=== PATIENT | female | born 1980 | race Caucasian/White ===

== ENCOUNTER 2017-01-24 20:10 | Emergency (ER) | payer SELFPAY ==
[2017-01-24 21:04] VITALS: BP 147/90
[2017-01-24] MEDS ORDERED: OXYCODONE-ACETAMINOPHEN 5-325 MG TABLET PO ONE (21:51)
--- NOTE | 2017-01-24 21:53 | ER Document Report ---
HPI - HPI Patient complains to provider of: Left foot pain Pain Level: 5 Context: Patient is a 36-year-old female who comes emergency department for chief complaint of bruising and swelling over 2 of the toes on her left foot, she states she woke up with this, she cannot remember any injury last night, she denies any other areas of pain or noted injury. Patient also states she has an area that is circular and on her right proximal lower extremity that has been there for 2-1/2 years that she wants checked. Patient denies any daily medications, denies any medical history other than the area on her leg. LMP within the past 3 weeks. - REPRODUCTIVE Reproductive: DENIES: : - DERM Skin Color: Normal Past Medical History - General Information source: Patient - Social History Smoking Status: Never Smoker Drug Abuse: None Lives with: Family Family History: Reviewed & Not Pertinent Patient has suicidal ideation: No Patient has homicidal ideation: No - Medical History Medical History: Negative Renal/ Medical History: Denies: Hx Peritoneal Dialysis Past Surgical History: Reports: Hx Section, Hx Tubal Ligation - Immunizations Immunizations up to date: Yes Hx Diphtheria, Pertussis, Tetanus Vaccination: Yes Vertical Provider Document - CONSTITUTIONAL General Appearance: WD/WN, No Apparent Distress - INFECTION CONTROL TRAVEL OUTSIDE OF THE [place] IN LAST 30 DAYS: No - HEENT HEENT: Atraumatic, Normal ENT Exam, Normocephalic - NECK Neck: Normal Inspection - RESPIRATORY Respiratory: Breath Sounds Normal, No Respiratory Distress O2 Sat by Pulse Oximetry: 100 - CARDIOVASCULAR Cardiovascular: Regular Rate, Regular Rhythm - GI/ABDOMEN Gastrointestinal: Abdomen Soft, Abdomen Non-Tender - MUSCULOSKELETAL/EXTREMETIES Musculoskeletal/Extremeties: Tender - There is mild ecchymosis over the dorsal aspect of the left third and fourth toes, there is a small abrasion over the third toe, capillary refill and sensation intact, range of motion intact, examination of the lower extremity is otherwise unremarkable. On the right lower extremity over the proximal anterior tibial area there is a spongy circular area in question, no significant erythema or heat to the area, no tenderness noted, no other abnormality noted - NEURO Level of Consciousness: Awake, Alert, Appropriate Course - Re-evaluation Re-evalutation: Examination is consistent with trauma to the left third and fourth toes, patient was provided with crutches, surgical shoe, x-rays do not show any fracture, dislocation, or other abnormality. Evaluate anti-inflammatory. Remaining area in question appears to be either a cyst or lipoma, no acute abnormalities noted. Discussed treatment, follow-up, return precautions, patient states understanding and agreement. - Vital Signs Vital signs: Temp Pulse Resp BP Pulse Ox 98 F 73 16 147/90 H 100 01/24/17 21:00 01/24/17 21:00 01/24/17 21:00 01/24/17 21:00 01/24/17 21:00 Discharge - Discharge Clinical Impression: Traumatic ecchymosis of toe of left foot Qualifiers: Encounter type: initial encounter Qualified Code(s): S90.122A - Contusion of left lesser toe(s) without damage to nail, initial encounter Condition: Stable Disposition: HOME, SELF-CARE Additional Instructions: There is soft tissue injury of the toe but no evidence of fracture or dislocation on imaging. Use the crutches for the first couple of days if needed , take an anti-inflammatory as prescribed, apply ice to the area and elevate your foot as often as possible. The area on the right leg appears to either be a lipoma or cyst, follow-up with 1 of the referrals given for potential removal if desired. Return to emergency department for any concerning worsening symptoms including swelling or redness to the area, severe pain, or any other concerning symptoms. Prescriptions: Naproxen 500 mg PO BID #20 tablet Referrals: TORRI URBANO DO [ACTIVE STAFF] - Follow up as needed ANTIONETTE CASTILLO MD [ACTIVE STAFF] - Follow up as needed [facility] [Provider Group] - Follow up as needed
== END 2017-01-24 23:14 | disposition home or self-care (01) ==
LOC: ER 20:10
DX: S90.122A Contusion of left lesser toe(s) without damage to nail, initial encounter (principal); M79.672 Pain in left foot; X58.XXXA Exposure to other specified factors, initial encounter
CPT/HCPCS: 99283

== ENCOUNTER 2018-07-04 21:57 | Emergency (ER) | payer SELFPAY ==
[2018-07-04] MEDS ORDERED: KETOROLAC TROMETHAMINE 60 MG/2 ML SDV IM ONE (23:13)
[2018-07-04] MEDS ORDERED: ONDANSETRON 4 MG TAB.RAPDIS PO ONE (23:13)
[2018-07-04] MEDS ORDERED: NORMAL SALINE 1000 ML 1,000 ML IV ONE (23:14)
--- NOTE | 2018-07-04 23:20 | ER Document Report ---
ED Medical Screen (RME) - General Chief Complaint: Chest Pain Stated Complaint: CHEST PAIN/ABDOMINAL PAIN Time Seen by Provider: 07/04/18 23:13 Notes: 38-year-old female chief complaint of sharp upper abdominal pain and vomiting x10 since last night. She states that she tried to eat but this made it worse. No lower abdominal pain, no fever, normal bowel movements. No surgical history. TRAVEL OUTSIDE OF THE [place] IN LAST 30 DAYS: No - Related Data Allergies/Adverse Reactions: No Known Allergies Allergy (Verified 01/24/17 21:05) Past Medical History Renal/ Medical History: Denies: Hx Peritoneal Dialysis Past Surgical History: Reports: Hx Section, Hx Tubal Ligation - Immunizations Immunizations up to date: Yes Hx Diphtheria, Pertussis, Tetanus Vaccination: Yes Physical Exam - Vital signs Vitals: Temp Pulse Resp BP Pulse Ox 98.4 F 74 18 156/100 H 100 07/04/18 22:18 07/04/18 22:18 07/04/18 22:18 07/04/18 22:18 07/04/18 22:18 - Abdominal Tenderness: Tender, Goodman's sign Course - Vital Signs Vital signs: Temp Pulse Resp BP Pulse Ox 98.4 F 74 18 156/100 H 100 07/04/18 22:18 07/04/18 22:18 07/04/18 22:18 07/04/18 22:18 07/04/18 22:18
[2018-07-04 23:45] LABS: ABSOLUTE EOSINOPHILS # (AUTO) 0.1 10^3/uL (0.0-0.6); ABSOLUTE LYMPHOCYTES (AUTO) 1.4 10^3/uL (0.5-4.7); ABSOLUTE MONOCYTES (AUTO) 0.7 10^3/uL (0.1-1.4); ABSOLUTE NEUT (AUTO) 9.3 10^3/uL (1.7-8.2); BASOPHILS % (AUTO) 0.2 % (0-2); EOSINOPHILS % (AUTO) 0.5 % (0-6); HEMATOCRIT 44.5 % (36.0-47.0); HEMOGLOBIN 14.7 g/dL (12.0-15.5); LYMPHOCYTES % (AUTO) 11.8 % (13-45); MEAN CORPUSCULAR HEMOGLOBIN 30.3 pg (27.0-33.4); MEAN CORPUSCULAR HGB CONC 33.1 g/dL (32.0-36.0); MEAN CORPUSCULAR VOLUME 92 fl (80-97); MONOCYTES % (AUTO) 5.7 % (3-13); PLATELET COUNT 227 10^3/uL (150-450); RED BLOOD COUNT 4.86 10^6/uL (3.72-5.28); RED CELL DISTRIBUTION WIDTH 14.6 % (11.5-14.0); SEGMENTED NEUTROPHILS % (AUTO) 81.8 % (42-78); TOTAL CELLS COUNTED % (AUTO) 100 %; WHITE BLOOD COUNT 11.4 10^3/uL (4.0-10.5)
[2018-07-04] MEDS ORDERED: ONDANSETRON HCL INJ/PF 4 MG/2 ML SDV IV ONE (23:50)
[2018-07-04] MEDS ORDERED: KETOROLAC TROMETHAMINE INJ/PF 30 MG/1 ML SDV IV ONE (23:50)
--- NOTE | 2018-07-04 23:57 | ER Document Report ---
ED General - General Chief Complaint: Chest Pain Stated Complaint: CHEST PAIN/ABDOMINAL PAIN Time Seen by Provider: 07/04/18 23:13 Notes: Patient is a 38-year-old female who presents to the emergency department with upper quadrant abdominal pain which radiates to the right upper quadrant. This started yesterday evening. She has been vomiting, and has not been aiming to keep anything down. Nothing makes the pain better, moving around makes pain worse. She denies any lower abdominal pain. She denies any past medical history. Her past surgical history includes hysterectomy with twins. TRAVEL OUTSIDE OF THE [place] IN LAST 30 DAYS: No - Related Data Allergies/Adverse Reactions: No Known Allergies Allergy (Verified 01/24/17 21:05) Past Medical History - Social History Smoking Status: Never Smoker Family History: Reviewed & Not Pertinent Renal/ Medical History: Denies: Hx Peritoneal Dialysis Past Surgical History: Reports: Hx Section, Hx Tubal Ligation - Immunizations Immunizations up to date: Yes Hx Diphtheria, Pertussis, Tetanus Vaccination: Yes Review of Systems - Review of Systems Notes: REVIEW OF SYSTEMS: CONSTITUTIONAL : Denies fever, chills, or sweats. Denies recent illness. EENT: Denies eye, ear, throat, or mouth pain or symptoms. Denies nasal or sinus congestion. CARDIOVASCULAR: Positive for chest pain when she breathes. RESPIRATORY: Denies cough, cold, or chest congestion. Denies shortness of breath, difficulty breathing, or wheezing. GASTROINTESTINAL: Positive for abdominal pain. Positive for nausea, vomiting. denies diarrhea. Denies constipation. Last BM: Today GENITOURINARY: Denies difficulty urinating, painful urination, burning, frequency, or blood in urine. FEMALE GENITOURINARY: Denies vaginal bleeding, abnormal or irregular periods. MUSCULOSKELETAL: Denies neck or back pain or joint pain or swelling. SKIN: Denies rash or skin lesions. HEMATOLOGIC : Denies easy bruising or bleeding. LYMPHATIC: Denies swollen, enlarged glands. NEUROLOGICAL: Denies altered mental status or loss of consciousness. Denies headache. Denies weakness or paralysis or loss of use of either side. Denies problems with gait or speech. Denies sensory or motor loss. PSYCHIATRIC: Denies anxiety or stress or depression. ALL OTHER SYSTEMS REVIEWED AND NEGATIVE. Physical Exam - Vital signs Vitals: Temp Pulse Resp BP Pulse Ox 98.4 F 74 18 156/100 H 100 10/29/18 22:18 07/04/18 22:18 07/04/18 22:18 07/04/18 22:18 07/04/18 22:18 - Notes Notes: PHYSICAL EXAMINATION: GENERAL: Well-appearing, well-nourished and in no acute distress. HEAD: Atraumatic, normocephalic. EYES: Pupils equal round and reactive to light, extraocular movements intact, sclera anicteric, conjunctiva are normal. ENT: nares patent, oropharynx clear without exudates. Moist mucous membranes. NECK: Normal range of motion, supple without lymphadenopathy LUNGS: Breath sounds clear to auscultation bilaterally and equal. No wheezes rales or rhonchi. HEART: Regular rate and rhythm without murmurs ABDOMEN: Right upper quadrant tenderness. Soft, normoactive bowel sounds. No guarding, no rebound. No masses appreciated. EXTREMITIES: Normal range of motion, no pitting or edema. No cyanosis. NEUROLOGICAL: No focal neurological deficits. Moves all extremities spontaneously and on command. PSYCH: Normal mood, normal affect. SKIN: Warm, Dry, normal turgor, no rashes or lesions noted. Course - Re-evaluation Re-evalutation: 07/05/18 00:03 Patient will be sent for an abdominal quadrant ultrasound. Awaiting labs. Differential diagnosis includes cholecystitis, cholelithiasis, pancreatitis, gastritis. I Do not suspect he has mesenteric ischemia, a bowel obstruction, pancreatitis. 07/05/18 01:09 Abdominal ultrasound shows patient has cholelithiasis. I have discussed her findings with her. She has been given the option of going home, or having surgery to have her gallbladder removed. She is decided to go home, with close follow-up with surgery. Verbal discharge instructions of staying away from fatty foods and coming back to the emergency department if her symptoms worsen or given. - Vital Signs Vital signs: Temp Pulse Resp BP Pulse Ox 98.6 F 63 18 122/71 100 07/05/18 02:27 07/05/18 02:27 07/04/18 22:18 07/05/18 02:27 07/05/18 02:27 - Laboratory Result Diagrams: 07/04/18 23:32 07/04/18 23:32 Laboratory results interpreted by me: 07/04/18 07/04/18 07/04/18 23:32 23:32 23:32 WBC 11.4 H RDW 14.6 H Seg Neutrophils % 81.8 H Lymphocytes % 11.8 L Absolute Neutrophils 9.3 H Sodium 136.8 L Urine Ketones 80 H Urine Urobilinogen 2.0 H Discharge - Discharge Clinical Impression: Cholelithiasis Condition: Stable Disposition: HOME, SELF-CARE Additional Instructions: You were seen for pain in your abdomen that is likely related to gallstones. Your work-up today does not show any signs that you need to have your gallbladder removed tonight. However, you will likely need surgery as an outpatient in the coming weeks. Please contact the surgery clinic in the next 24 -48 hours to discuss the need for further evaluation and consideration of surgery. Please stay away from fatty foods within the next few weeks because your pain can return. You may take Toradol every 6 hours as needed for the pain. You have also been sent home with Zofran, medication for nausea, you may take this every 6 hours as needed. Return to the ED immediately if you develop worsening pain, persistent vomiting, become unable to tolerate fluids, have a fever of >1004, or any other symptoms that are concerning to you. Prescriptions: Ketorolac Tromethamine [Toradol 10 mg Tablet] 10 mg PO Q6HP PRN #20 tablet PRN Reason: Referrals: ISHAN CARREON MD [ACTIVE STAFF] - 07/05/18
[2018-07-05 00:04] LABS: APPEARANCE,URINE SLIGHTLY-CLOUDY; BILIRUBIN,URINE NEGATIVE (NEGATIVE); COLOR,URINE YELLOW; GLUCOSE, URINE NEGATIVE (NEGATIVE); KETONES,URINE 80 mg/dL (NEGATIVE); LEUKOCYTE ESTERASE,URINE NEGATIVE (NEGATIVE); NITRITE,URINE NEGATIVE (NEGATIVE); PROTEIN,URINE NEGATIVE (NEGATIVE); URINE SPECIFIC GRAVITY 1.027
[2018-07-05 00:05] LABS: ALANINE AMINOTRANSFERASE 16 U/L (9-52); ALBUMIN 4.2 g/dL (3.5-5.0); ALKALINE PHOSPHATASE 46 U/L (38-126); ANION GAP 11 (5-19); ASPARTATE AMINO TRANSFERASE 19 U/L (14-36); BILIRUBIN,DIRECT 0.2 mg/dL (0.0-0.4); BILIRUBIN,TOTAL 0.8 mg/dL (0.2-1.3); BLOOD UREA NITROGEN 9 mg/dL (7-20); CALCIUM 9.6 mg/dL (8.4-10.2); CARBON DIOXIDE 25 mmol/L (22-30); CHLORIDE 101 mmol/L (98-107); GLUCOSE 110 mg/dL (75-110); LIPASE 89.1 U/L (23-300); SODIUM 136.8 mmol/L (137-145); TOTAL PROTEIN 7.2 g/dL (6.3-8.2)
--- NOTE | 2018-07-05 00:44 | RADIOLOGY REPORT (SQ) ---
CLINICAL DATA: 38-year-old female with sharp epigastric pain and vomiting. TECHNICAL DATA: Limited sonographic imaging of the right upper quadrant was performed. Comparison: None. FINDINGS: The liver is normal in size and configuration. The liver demonstrates normal echogenicity. No focal hepatic abnormalities are identified. Doppler imaging reveals patency of the portal vein and normal hepatopedal flow. The gallbladder is well distended and contains a shadowing echogenic focus in the gallbladder neck consistent with a gallstone. There is no evidence of biliary ductal dilatation. The common bile duct measures 2 mm in diameter. The gallbladder wall measures 2 mm in diameter. No pericholecystic fluid is identified. The right kidney is normal in size, shape and echogenicity without hydronephrosis or definite nephrolithiasis. The right kidney measures 10.6 cm in length. There is no evidence of free fluid in the abdomen. The pancreas is normal in size, shape and echogenicity. The aorta and inferior vena cava are unremarkable and there is normal tapering of the aorta. IMPRESSION: 1. Cholelithiasis without evidence of biliary ductal dilatation, definite gallbladder wall thickening or pericholecystic fluid. 2. Otherwise, unremarkable right upper quadrant ultrasound.
[2018-07-05] MEDS ORDERED: ONDANSETRON ODT 4 MG TAB (6 TAB/ER DISP) PO PRN (01:22)
[2018-07-05 02:29] VITALS: BP 122/71
--- NOTE | 2018-07-05 10:40 | EKG REPORT ---
SEVERITY:- ABNORMAL ECG - CONSIDER LEFT VENTRICULAR HYPERTROPHY SINUS RHYTHM WITH PAC's. : Confirmed by: Dari Garcia MD 05-Jul-2018 10:38:47
== END 2018-07-05 02:28 | disposition home or self-care (01) ==
LOC: ER 21:57
DX: K80.20 Calculus of gallbladder without cholecystitis without obstruction (principal); R07.1 Chest pain on breathing; R11.2 Nausea with vomiting, unspecified; Z90.710 Acquired absence of both cervix and uterus; Z98.51 Tubal ligation status
CPT/HCPCS: 93005; 99285; 96361; 96374; 36415; 83690; 84703; 85025; 80053; 81001; 76705; 93010; J1885; J7030

== ENCOUNTER 2018-07-11 11:25 | Inpatient (IN) | payer BC ==
--- NOTE | 2018-07-11 12:05 | ER Document Report ---
ED Medical Screen (RME) - General Chief Complaint: Upper Abdominal Pain Stated Complaint: RIGHT ABDOMINAL PAIN Time Seen by Provider: 07/11/18 11:55 Mode of Arrival: Ambulatory Information source: Patient Notes: 38-year-old female presents emergency department with complaints of right upper quadrant abdominal pain. Patient was seen in the emergency department last week for similar symptoms and diagnosed with gallstones. Patient was given the option to follow-up outpatient or have her gallbladder removed at that time. Patient wanted to follow-up outpatient. Patient states that she has not followed up with a general surgeon. She states that she has had fever, chills, worsening right upper quadrant pain. I have greeted and performed a rapid initial assessment of this patient. A comprehensive ED assessment and evaluation of the patient, analysis of test results and completion of the medical decision making process will be conducted by additional ED providers. PHYSICAL EXAMINATION: GENERAL: Well-appearing, well-nourished and in no acute distress. HEAD: Atraumatic, normocephalic. EYES: Pupils equal round extraocular movements intact, conjunctiva are normal. ENT: Nares patent NECK: Normal range of motion LUNGS: No respiratory distress Musculoskeletal: Normal range of motion NEUROLOGICAL: Normal speech, normal gait. PSYCH: Normal mood, normal affect. SKIN: Warm, Dry, normal turgor, no rashes or lesions noted. TRAVEL OUTSIDE OF THE [place] IN LAST 30 DAYS: No - Related Data Allergies/Adverse Reactions: No Known Allergies Allergy (Verified 01/24/17 21:05) Past Medical History - Social History Frequency of alcohol use: None Drug Abuse: None Renal/ Medical History: Denies: Hx Peritoneal Dialysis Past Surgical History: Reports: Hx Section, Hx Tubal Ligation - Immunizations Immunizations up to date: Yes Hx Diphtheria, Pertussis, Tetanus Vaccination: Yes Physical Exam - Vital signs Vitals: Temp Pulse Resp BP Pulse Ox 98.4 F 95 18 149/101 H 100 07/11/18 11:07/11/18 11:07/11/18 11:07/11/18 11:07/11/18 11:29 Course - Vital Signs Vital signs: Temp Pulse Resp BP Pulse Ox 98.4 F 95 18 149/101 H 100 07/11/18 11:29 07/11/18 11:07/11/18 11:29 07/11/18 11:29 07/11/18 11:29
[2018-07-11 12:33] LABS: ABSOLUTE EOSINOPHILS # (AUTO) 0.1 10^3/uL (0.0-0.6); ABSOLUTE LYMPHOCYTES (AUTO) 1.2 10^3/uL (0.5-4.7); ABSOLUTE MONOCYTES (AUTO) 0.4 10^3/uL (0.1-1.4); ABSOLUTE NEUT (AUTO) 4.6 10^3/uL (1.7-8.2); BASOPHILS % (AUTO) 0.6 % (0-2); EOSINOPHILS % (AUTO) 1.9 % (0-6); HEMATOCRIT 43.6 % (36.0-47.0); HEMOGLOBIN 14.6 g/dL (12.0-15.5); LYMPHOCYTES % (AUTO) 19.2 % (13-45); MEAN CORPUSCULAR HEMOGLOBIN 30.7 pg (27.0-33.4); MEAN CORPUSCULAR HGB CONC 33.5 g/dL (32.0-36.0); MEAN CORPUSCULAR VOLUME 92 fl (80-97); MONOCYTES % (AUTO) 6.6 % (3-13); PLATELET COUNT 259 10^3/uL (150-450); RED BLOOD COUNT 4.75 10^6/uL (3.72-5.28); RED CELL DISTRIBUTION WIDTH 13.9 % (11.5-14.0); SEGMENTED NEUTROPHILS % (AUTO) 71.7 % (42-78); TOTAL CELLS COUNTED % (AUTO) 100 %; WHITE BLOOD COUNT 6.5 10^3/uL (4.0-10.5)
[2018-07-11 12:45] LABS: ALANINE AMINOTRANSFERASE 24 U/L (9-52); ALBUMIN 4.1 g/dL (3.5-5.0); ALKALINE PHOSPHATASE 56 U/L (38-126); ANION GAP 13 (5-19); ASPARTATE AMINO TRANSFERASE 15 U/L (14-36); BILIRUBIN,DIRECT 0.2 mg/dL (0.0-0.4); BILIRUBIN,TOTAL 0.5 mg/dL (0.2-1.3); BLOOD UREA NITROGEN 8 mg/dL (7-20); CALCIUM 9.3 mg/dL (8.4-10.2); CARBON DIOXIDE 25 mmol/L (22-30); CHLORIDE 107 mmol/L (98-107); GLUCOSE 99 mg/dL (75-110); LIPASE 129.7 U/L (23-300); SODIUM 145.2 mmol/L (137-145); TOTAL PROTEIN 7.1 g/dL (6.3-8.2)
[2018-07-11 13:08] LABS: APPEARANCE,URINE CLEAR; BILIRUBIN,URINE NEGATIVE (NEGATIVE); COLOR,URINE STRAW; GLUCOSE, URINE NEGATIVE (NEGATIVE); KETONES,URINE NEGATIVE (NEGATIVE); LEUKOCYTE ESTERASE,URINE NEGATIVE (NEGATIVE); NITRITE,URINE NEGATIVE (NEGATIVE); PROTEIN,URINE NEGATIVE (NEGATIVE); URINE SPECIFIC GRAVITY 1.005; UROBILINOGEN,URINE NEGATIVE mg/dL (<2.0)
[2018-07-11] MEDS ORDERED: FENTANYL CITRATE INJ/PF 100 MCG/2 ML AMPUL IV ONE (13:51)
[2018-07-11] MEDS ORDERED: NORMAL SALINE 1000 ML 1,000 ML IV ONE (13:51)
--- NOTE | 2018-07-11 15:41 | RADIOLOGY REPORT (SQ) ---
EXAM DESCRIPTION: U/S ABDOMEN LIMITED W/O DOP COMPLETED DATE/TIME: 07/11/2018 2:25 pm REASON FOR STUDY: RUQ pain COMPARISON: 07/05/2018 TECHNIQUE: Dynamic and static grayscale images acquired of the abdomen and recorded on PACS. Hollieo polo selected color Doppler and spectral images recorded. LIMITATIONS: None. FINDINGS: PANCREAS: No masses. Visualized pancreatic duct normal caliber. LIVER: No masses. Echotexture normal. LIVER VASCULATURE: Normal directional flow of the main portal vein and hepatic veins. GALLBLADDER: There is an 18 mm calculus in the neck of the gallbladder. There is thickening of the g allbladder wall and a small amount of pericholecystic fluid. ULTRASOUND-DETECTED HERNANDEZ'S SIGN: Positive. INTRAHEPATIC DUCTS AND COMMON DUCT: CBD and intrahepatic ducts normal caliber. No filling defects. INFERIOR VENA CAVA: Normal flow. AORTA: No aneurysm. RIGHT KIDNEY: Normal size, 10.2 cm. Normal echogenicity. No solid or suspicious masses. No hydroneph rosis. No calcifications. PERITONEAL AND RIGHT PLEURAL SPACE: No ascites or effusions. OTHER: No other significant findings. IMPRESSION: Cholelithiasis with thickening of the gallbladder wall and pericholecystic fluid concern ing for acute cholecystitis. TECHNICAL DOCUMENTATION: JOB ID: [id number] [employer]- All Rights Reserved Reading location - IP/workstation name: [email or web address]
[2018-07-11] MEDS ORDERED: PIPERACILLIN/TAZOBACTAM 4.5 GM VIAL IV ONE (15:57)
--- NOTE | 2018-07-11 16:01 | ER Document Report ---
ED GI/ - General Chief Complaint: Upper Abdominal Pain Stated Complaint: RIGHT ABDOMINAL PAIN Time Seen by Provider: 07/11/18 11:55 Mode of Arrival: Ambulatory Information source: Patient Notes: Patient presents complaining of a one-week history of right upper quadrant abdominal pain. Patient states she was here recently and diagnosed with gallstones. Patient states that she has been vomiting after each of her meals. Patient denies any fever. Patient states she last ate yesterday but did have water around 1 PM today. TRAVEL OUTSIDE OF THE [place] IN LAST 30 DAYS: No - HPI Patient complains to provider of: Abdominal pain, Vomiting Onset: Last week Timing/Duration: Worse Quality of pain: Sharp Pain Level: 5 Location: RUQ Vaginal bleeding (Compared to normal period): None Menstrual period history: denies: Associated symptoms: Nausea, Vomiting. denies: Diarrhea, Dysuria, Fever, Loss of appetite, Urinary hesitancy, Vaginal discharge Exacerbated by: Food Relieved by: Denies Similar symptoms previously: Yes Recently seen / treated by doctor: Yes - Related Data Allergies/Adverse Reactions: No Known Allergies Allergy (Verified 01/24/17 21:05) Past Medical History - General Information source: Patient - Social History Smoking Status: Current Every Day Smoker Frequency of alcohol use: None Drug Abuse: None Occupation: Retail Lives with: Family Family History: Reviewed & Not Pertinent Patient has suicidal ideation: No Patient has homicidal ideation: No - Medical History Medical History: Negative Renal/ Medical History: Denies: Hx Peritoneal Dialysis Past Surgical History: Reports: Hx Section, Hx Tubal Ligation - Immunizations Immunizations up to date: Yes Hx Diphtheria, Pertussis, Tetanus Vaccination: Yes Review of Systems - Review of Systems Constitutional: No symptoms reported. denies: Fever, Recent illness EENT: No symptoms reported Cardiovascular: No symptoms reported. denies: Chest pain Respiratory: No symptoms reported. denies: Cough Gastrointestinal: Abdominal pain, Nausea, Vomiting. denies: Diarrhea Genitourinary: No symptoms reported. denies: Dysuria, Frequency, Flank pain Female Genitourinary: No symptoms reported. denies: Musculoskeletal: No symptoms reported Skin: No symptoms reported Hematologic/Lymphatic: No symptoms reported Neurological/Psychological: No symptoms reported Physical Exam - Vital signs Vitals: Temp Pulse Resp BP Pulse Ox 98.4 F 95 18 149/101 H 100 07/11/18 11:29 11/05/18 11:29 07/11/18 11:29 07/11/18 11:29 07/11/18 11:29 - General General appearance: Appears well, Alert In distress: Mild - HEENT Head: Normocephalic, Atraumatic Eyes: Normal Conjunctiva: Normal Nasal: Normal Mouth/Lips: Normal Mucous membranes: Normal Neck: Normal, Supple. No: Lymphadenopathy - Respiratory Respiratory status: No respiratory distress Chest status: Nontender Breath sounds: Normal. No: Rales, Rhonchi, Stridor, Wheezing Chest palpation: Normal - Cardiovascular Rhythm: Regular Heart sounds: S1 appreciated, S2 appreciated Murmur: No - Abdominal Inspection: Normal Distension: No distension Bowel sounds: Normal Tenderness: Tender - Right upper quadrant, Guarding Organomegaly: No organomegaly - Back Back: Normal, Nontender. No: CVA tenderness - Extremities General upper extremity: Normal inspection, Normal ROM General lower extremity: Normal inspection, Normal ROM - Neurological Neuro grossly intact: Yes Cognition: Normal [place] Coma Scale Eye Opening: Spontaneous [place] Coma Scale Verbal: Oriented [place] Coma Scale Motor: Obeys Commands [place] Coma Scale Total: 15 - Psychological Associated symptoms: Normal affect, Normal mood - Skin Skin Temperature: Warm Skin Moisture: Dry Skin Color: Normal Course - Re-evaluation Re-evalutation: 07/11/18 16:00 Reviewed ultrasound report concerning for acute cholecystitis with cholelithiasis. Consulted with a surgeon Dr. Hou who agrees to come and evaluate patient. Antibiotics ordered at this time. Patient updated regarding plan of care. 07/11/18 16:12 Dr. Hou to bedside for examination. - Vital Signs Vital signs: Temp Pulse Resp BP Pulse Ox 98.2 F 72 18 134/92 H 100 07/11/18 18:22 07/11/18 18:22 07/11/18 18:22 07/11/18 18:22 07/11/18 18:22 - Laboratory Result Diagrams: 07/11/18 12:12 07/11/18 12:12 Laboratory results interpreted by me: 07/11/18 12:12 Sodium 145.2 H 07/11/18 16:00 Labs- Entire Visit 07/11/18 07/11/18 07/11/18 12:12 12:12 12:12 WBC 6.5 RBC 4.75 Hgb 14.6 Hct 43.6 MCV 92 MCH 30.7 MCHC 33.5 RDW 13.9 Plt Count 259 Seg Neutrophils % 71.7 Lymphocytes % 19.2 Monocytes % 6.6 Eosinophils % 1.9 Basophils % 0.6 Absolute Neutrophils 4.6 Absolute Lymphocytes 1.2 Absolute Monocytes 0.4 Absolute Eosinophils 0.1 Absolute Basophils 0.0 Sodium 145.2 H Potassium 4.0 Chloride 107 Carbon Dioxide 25 Anion Gap 13 BUN 8 Creatinine 0.57 Est GFR ( Amer) > 60 Est GFR (Non-Af Amer) > 60 Glucose 99 Calcium 9.3 Total Bilirubin 0.5 Direct Bilirubin 0.2 Neonat Total Bilirubin Not Reportable Neonat Direct Bilirubin Not Reportable Neonat Indirect Bili Not Reportable AST 15 ALT 24 Alkaline Phosphatase 56 Total Protein 7.1 Albumin 4.1 Lipase 129.7 Urine Color STRAW Urine Appearance CLEAR Urine pH 7.0 Ur Specific [place] 1.005 Urine Protein NEGATIVE Urine Glucose (UA) NEGATIVE Urine Ketones NEGATIVE Urine Blood NEGATIVE Urine Nitrite NEGATIVE Urine Bilirubin NEGATIVE Urine Urobilinogen NEGATIVE Ur Leukocyte Esterase NEGATIVE Urine WBC (Auto) 1 Urine Bacteria (Auto) TRACE Squamous Epi Cells Auto 5 Urine Ascorbic Acid NEGATIVE Urine HCG, Qual NEGATIVE - Diagnostic Test Radiology reviewed: Reports reviewed Discharge - Discharge Clinical Impression: Cholecystitis Cholelithiasis Qualifiers: Cholelithiasis location: gallbladder Cholecystitis presence: with cholecystitis Cholecystitis acuity: acute Biliary obstruction: without biliary obstruction Qualified Code(s): K80.00 - Calculus of gallbladder with acute cholecystitis without obstruction Condition: Fair Disposition: ADMITTED INPATIENT Admitting Provider: Surgicalist Unit Admitted: Medical Floor
[2018-07-11] MEDS ORDERED: ONDANSETRON HCL INJ/PF 4 MG/2 ML SDV IV PRN (16:45)
--- NOTE | 2018-07-11 16:45 | PDOC H&P ---
History of Present Illness Admission Date/PCP: 07/11/18 Patient complains of: Right upper quadrant pain x 1 week History of Present Illness: MAYELIN PARRA is a 38 year old female, healthy with a hx of right upper quadrant pain x 1 week; an ultrasound of the gallbladder demonstrated a large gallstone in the gallbladder neck as well as thickening of the gallbladder wall and small amount of pericholecystic fluid. Past Surgical History Past Surgical History: Reports: Section, Tubal Ligation Social History Smoking Status: Current Every Day Smoker Family History Family History: Reviewed & Not Pertinent Parental Family History Reviewed: No Children Family History Reviewed: No Sibling(s) Family History Reviewed.: No Medication/Allergy Home Medications: Ciprofloxacin HCl [Cipro 500 mg Tablet] 500 mg PO BID #20 tablet 02/15/15 Hydrocodone Bit/Acetaminophen [Hydrocodon-Acetaminophen 5-325] 1 each PO Q6 #20 tablet 02/15/15 Naproxen 500 mg PO BID #20 tablet 01/24/17 Ketorolac Tromethamine [Toradol 10 mg Tablet] 10 mg PO Q6HP PRN #20 tablet 07/05 Allergies/Adverse Reactions: No Known Allergies Allergy (Verified 01/24/17 21:05) Physical Exam Vital Signs: Temp Pulse Resp BP Pulse Ox 98.4 F 95 18 149/101 H 100 07/11/18 11:29 07/11/18 11:29 07/11/18 11:29 07/11/18 11:29 07/11/18 11:29 Intake & Output 07/10/18 07/11/18 07/12/18 06:59 06:59 06:59 Weight 60.6 kg General appearance: PRESENT: no acute distress Eye exam: PRESENT: EOMI Mouth exam: PRESENT: moist, neck supple Respiratory exam: PRESENT: clear to auscultation krish Cardiovascular exam: PRESENT: RRR GI/Abdominal exam: PRESENT: hypoactive bowel sounds, soft, tenderness - tenderness in the right upper quadrant and epigastrium Rectal exam: PRESENT: deferred Extremities exam: PRESENT: full ROM Musculoskeletal exam: PRESENT: full ROM Neurological exam: PRESENT: alert, awake Skin exam: PRESENT: warm Results Laboratory Results: 07/11/18 12:12 07/11/18 12:12 07/11/18 07/11/18 07/11/18 12:12 12:12 12:12 WBC 6.5 RBC 4.75 Hgb 14.6 Hct 43.6 MCV 92 MCH 30.7 MCHC 33.5 RDW 13.9 Plt Count 259 Seg Neutrophils % 71.7 Lymphocytes % 19.2 Monocytes % 6.6 Eosinophils % 1.9 Basophils % 0.6 Absolute Neutrophils 4.6 Absolute Lymphocytes 1.2 Absolute Monocytes 0.4 Absolute Eosinophils 0.1 Absolute Basophils 0.0 Sodium 145.2 H Potassium 4.0 Chloride 107 Carbon Dioxide 25 Anion Gap 13 BUN 8 Creatinine 0.57 Est GFR ( Amer) > 60 Est GFR (Non-Af Amer) > 60 Glucose 99 Calcium 9.3 Total Bilirubin 0.5 AST 15 ALT 24 Alkaline Phosphatase 56 Total Protein 7.1 Albumin 4.1 Lipase 129.7 Urine Color STRAW Urine Appearance CLEAR Urine pH 7.0 Ur Specific Cascade 1.005 Urine Protein NEGATIVE Urine Glucose (UA) NEGATIVE Urine Ketones NEGATIVE Urine Blood NEGATIVE Urine Nitrite NEGATIVE Ur Leukocyte Esterase NEGATIVE Urine WBC (Auto) 1 Impressions: Abdomen Ultrasound 07/11/18 13:23 IMPRESSION: Cholelithiasis with thickening of the gallbladder wall and pericholecystic fluid concerning for acute cholecystitis. Assessment & Plan - Diagnosis (2) Cholelithiasis Qualifiers: Cholelithiasis location: gallbladder Cholecystitis presence: with cholecystitis Cholecystitis acuity: acute Biliary obstruction: without biliary obstruction Qualified Code(s): K80.00 - Calculus of gallbladder with acute cholecystitis without obstruction Is this a current diagnosis for this admission?: Yes - Plan Summary Plan Summary: A/ RUQ pain with cholelithiasis Abdominal ultrasound significant for cholelithiasis with gallbladder wall thickening and pericholecystic fluid P/ Admit Laparoscopic cholecystectomy, possible open, possible cholangiogram in AM NPO after midnight Mefoxin IVPB IVF Procedure risks, benefits, complications, including liver bleeding and or injury of the common bile duct requiring transfer to a tertiary center for repair have been explained to the patient, she understands all the above, her questions were answered, and she decided to proceed.
[2018-07-11] MEDS: MORPHINE SULFATE 10 MG/ML INJ IV PRN ×2 (18:07→21:43)
[2018-07-11] MEDS: NORMAL SALINE 1000 ML 1,000 ML IV PRN (18:22)
[2018-07-11] MEDS: CEFOXITIN 1 GM/D5W RTU 1 GM/50 ML RTUPB IV SCH (22:24)
[2018-07-12] MEDS: NORMAL SALINE 1000 ML 1,000 ML IV PRN (03:06)
[2018-07-12] MEDS: MORPHINE SULFATE 10 MG/ML INJ IV PRN ×5 (03:18→23:40)
[2018-07-12] MEDS: CEFOXITIN 1 GM/D5W RTU 1 GM/50 ML RTUPB IV SCH ×3 (05:42→22:57)
[2018-07-12 06:38] LABS: ABSOLUTE EOSINOPHILS # (AUTO) 0.2 10^3/uL (0.0-0.6); ABSOLUTE LYMPHOCYTES (AUTO) 1.9 10^3/uL (0.5-4.7); ABSOLUTE MONOCYTES (AUTO) 0.5 10^3/uL (0.1-1.4); ABSOLUTE NEUT (AUTO) 3.9 10^3/uL (1.7-8.2); BASOPHILS % (AUTO) 0.6 % (0-2); EOSINOPHILS % (AUTO) 3.1 % (0-6); LYMPHOCYTES % (AUTO) 28.5 % (13-45); MEAN CORPUSCULAR HEMOGLOBIN 30.8 pg (27.0-33.4); MEAN CORPUSCULAR HGB CONC 33.8 g/dL (32.0-36.0); MEAN CORPUSCULAR VOLUME 91 fl (80-97); MONOCYTES % (AUTO) 7.6 % (3-13); PLATELET COUNT 176 10^3/uL (150-450); RED BLOOD COUNT 3.94 10^6/uL (3.72-5.28); RED CELL DISTRIBUTION WIDTH 13.7 % (11.5-14.0); SEGMENTED NEUTROPHILS % (AUTO) 60.2 % (42-78); TOTAL CELLS COUNTED % (AUTO) 100 %; WHITE BLOOD COUNT 6.5 10^3/uL (4.0-10.5)
[2018-07-12 06:39] LABS: ALANINE AMINOTRANSFERASE 54 U/L (9-52); ALBUMIN 2.7 g/dL (3.5-5.0); ALKALINE PHOSPHATASE 57 U/L (38-126); ANION GAP 9 (5-19); ASPARTATE AMINO TRANSFERASE 46 U/L (14-36); BILIRUBIN,DIRECT 0.1 mg/dL (0.0-0.4); BILIRUBIN,TOTAL 0.3 mg/dL (0.2-1.3); BLOOD UREA NITROGEN 4 mg/dL (7-20); CALCIUM 8.1 mg/dL (8.4-10.2); CARBON DIOXIDE 20 mmol/L (22-30); CHLORIDE 112 mmol/L (98-107); GLUCOSE 86 mg/dL (75-110); POTASSIUM 3.7 mmol/L (3.6-5.0); SODIUM 140.8 mmol/L (137-145); TOTAL PROTEIN 5.2 g/dL (6.3-8.2)
[2018-07-12 06:46] LABS: HEMOGLOBIN 12.2 g/dL (12.0-15.5)
[2018-07-12] MEDS ORDERED: SUCCINYLCHOLINE CHLORIDE INJ 200 MG/10 ML VIAL ONE (08:32)
[2018-07-12] MEDS ORDERED: ROCURONIUM BROMIDE INJ 50 MG/5 ML VIAL IV ONE (08:32)
[2018-07-12] MEDS ORDERED: BUPIVACAINE HCL 0.5%-EPI 1:200000 INJ/PF 30 ML VIAL ONE (10:25)
[2018-07-12] MEDS ORDERED: SUGAMMADEX SODIUM 200 MG/2 ML SDV IV ONE (12:19)
[2018-07-12] MEDS ORDERED: ONDANSETRON HCL INJ/PF 4 MG/2 ML SDV ONE (12:19)
[2018-07-12] MEDS ORDERED: DEXAMETHASONE SOD PHOSPHATE INJ 4 MG/1 ML VIAL ONE (12:19)
[2018-07-12] MEDS ORDERED: ACETAMINOPHEN 1,000 MG/100 ML RTUPB IV ONE (12:19)
[2018-07-12] MEDS ORDERED: FENTANYL CITRATE INJ/PF 100 MCG/2 ML AMPUL ONE (12:19)
[2018-07-12] MEDS ORDERED: PROPOFOL INJ 200 MG/20 ML VIAL IV ONE (12:19)
[2018-07-12] MEDS ORDERED: MIDAZOLAM 2 MG/2 ML INJ ONE (12:19)
[2018-07-12] MEDS ORDERED: MEPERIDINE HCL/PF INJ 25 MG/1 ML DISP.SYRIN IV PRN (12:54)
[2018-07-12] MEDS ORDERED: MORPHINE SULFATE 10 MG/ML INJ IV PRN (12:54)
[2018-07-12] MEDS ORDERED: FENTANYL CITRATE INJ/PF 100 MCG/2 ML AMPUL IV PRN ×3 (12:54)
[2018-07-12] MEDS ORDERED: DIPHENHYDRAMINE HCL 50 MG/ML VIAL IV PRN (12:54)
[2018-07-12] MEDS ORDERED: PROMETHAZINE HCL INJ 25 MG/1 ML VIAL IV PRN ×2 (12:54)
[2018-07-12] MEDS ORDERED: ONDANSETRON HCL INJ/PF 4 MG/2 ML SDV IV PRN (12:54)
[2018-07-12] MEDS ORDERED: KETOROLAC TROMETHAMINE INJ/PF 30 MG/1 ML SDV ONE (14:46)
[2018-07-12] MEDS: HYDROMORPHONE HCL INJ/PF 2 MG/ML AMPULE ONE ×3 (14:47→15:07)
--- NOTE | 2018-07-12 15:04 | Operative Report ---
Nonrecallable Operative Report DATE OF SURGERY: 07/12/18 PREOPERATIVE DIAGNOSIS: Acute cholecystitis, chronic cholecystitis, cholelithiasis POSTOPERATIVE DIAGNOSIS: same OPERATION: laparoscopic cholecystectomy SURGEON: ALTAGRACIA RIVERA ANESTHESIA: GA - plus 30 mL 1% lidocaine with epinephrine TISSUE REMOVED OR ALTERED: gallbladder COMPLICATIONS: none ESTIMATED BLOOD LOSS: 10 mL INTRAOPERATIVE FINDINGS: severe acute and chronic gallbladder inflamation with thick neck and gallbladder wall; cystic duct fibrotic and not clearly identified , clips placed on the distal stump of the cystic duct, followed by a drain PROCEDURE: see dictation
[2018-07-12] MEDS ORDERED: NORMAL SALINE 1000 ML 1,000 ML IV PRN (15:09)
[2018-07-12] MEDS: FAMOTIDINE INJ/PF 20 MG/2 ML SDV IV SCH (22:57)
[2018-07-13] MEDS: MORPHINE SULFATE 10 MG/ML INJ IV PRN (02:30)
[2018-07-13] MEDS: CEFOXITIN 1 GM/D5W RTU 1 GM/50 ML RTUPB IV SCH (05:41)
[2018-07-13 07:36] LABS: HEMATOCRIT 33.4 % (36.0-47.0); HEMOGLOBIN 11.2 g/dL (12.0-15.5); MEAN CORPUSCULAR HEMOGLOBIN 30.7 pg (27.0-33.4); MEAN CORPUSCULAR HGB CONC 33.5 g/dL (32.0-36.0); MEAN CORPUSCULAR VOLUME 92 fl (80-97); PLATELET COUNT 187 10^3/uL (150-450); RED BLOOD COUNT 3.65 10^6/uL (3.72-5.28); RED CELL DISTRIBUTION WIDTH 13.5 % (11.5-14.0); WHITE BLOOD COUNT 8.8 10^3/uL (4.0-10.5)
[2018-07-13 07:51] LABS: ALANINE AMINOTRANSFERASE 49 U/L (9-52); ALBUMIN 2.6 g/dL (3.5-5.0); ALKALINE PHOSPHATASE 46 U/L (38-126); ANION GAP 9 (5-19); ASPARTATE AMINO TRANSFERASE 40 U/L (14-36); BILIRUBIN,DIRECT 0.1 mg/dL (0.0-0.4); BILIRUBIN,TOTAL 0.4 mg/dL (0.2-1.3); BLOOD UREA NITROGEN 4 mg/dL (7-20); CALCIUM 8.4 mg/dL (8.4-10.2); CARBON DIOXIDE 23 mmol/L (22-30); CHLORIDE 110 mmol/L (98-107); GLUCOSE 91 mg/dL (75-110); POTASSIUM 3.9 mmol/L (3.6-5.0); SODIUM 141.8 mmol/L (137-145); TOTAL PROTEIN 5.1 g/dL (6.3-8.2)
[2018-07-13] MEDS ORDERED: KETOROLAC TROMETHAMINE INJ/PF 30 MG/1 ML SDV IV PRN (08:36)
[2018-07-13] MEDS ORDERED: HYDROCODONE/ACETAMINOPHEN 10-325 MG TABLET PO PRN (08:36)
[2018-07-13] MEDS: FAMOTIDINE INJ/PF 20 MG/2 ML SDV IV SCH (09:59)
--- NOTE | 2018-07-13 10:09 | RADIOLOGY REPORT (SQ) ---
EXAM DESCRIPTION: NM HIDA SCAN COMPLETED DATE/TIME: 07/13/2018 9:57 am REASON FOR STUDY: rule out bile leak, no ejection fraction COMPARISON: Abdominal ultrasound 07/11/2018, 07/05/2018 RADIONUCLIDE AND DOSE: DOSAGE RADIONUCLIDE: 5 millicuries Tc99m Mebrofenin. DOSAGE MORPHINE: Not required. The route of agent administration: Intravenous TECHNIQUE: Serial imaging right upper quadrant up to 60 minutes following injection of radionuclide. Patient imaged AP and Right Lateral. LIMITATIONS: None. FINDINGS: LIVER: Normal visualization without areas of photopenia. INTRA-HEPATIC BILE DUCTS: Normal visualization COMMON BILE DUCT: Normal visualization GALLBLADDER: Surgically absent. No ectopic accumulation in the gallbladder fossa is identified. OTHER: No other significant finding. IMPRESSION: No ectopic accumulation of activity to suggest bile leak. Normal accumulation and clearance of activity from the liver. Normal activity in the intrahepatic du cts, common bile duct, and duodenum. TECHNICAL DOCUMENTATION: JOB ID: [id number] [employer]- All Rights Reserved Reading location - IP/workstation name: [id number]
--- NOTE | 2018-07-13 11:05 | OPERATIVE REPORT E ---
Operative Report NAME: MAYELIN PARRA : 1980 AGE: 38Y DATE OF SURGERY: 07/12/2018 ROOM: 208 PREOPERATIVE DIAGNOSIS: 1. ACUTE CHOLECYSTITIS. 2. CHRONIC CHOLECYSTITIS. 3. CHOLELITHIASIS. POSTOPERATIVE DIAGNOSIS: 1. ACUTE CHOLECYSTITIS. 2. CHRONIC CHOLECYSTITIS. 3. CHOLELITHIASIS. OPERATION: Laparoscopic cholecystectomy. SURGEON: ALTAGRACIA RIVERA M.D. ANESTHESIA RESIDENT: None. BLOOD LOSS: 10 mL COMPLICATION: None. ANESTHESIA: General, plus 30 mL of 1% lidocaine with epinephrine. FLUIDS: 600 mL INDICATION AND FINDINGS: This is a 38-year-old female with a long family history of right upper quadrant pain, intense nausea, emesis, who presented to the emergency room yesterday evening complaining of right upper quadrant pain, epigastric pain, intense nausea, emesis. Found to have [id number] cholecystitis, normal blood work, and a large stone impinged by the neck of the gallbladder. Decision was made to admit the patient and take to surgery in the morning for laparoscopic cholecystectomy, possible open, possible cholangiogram. Procedure, risks, benefits, and complications discussed with the patient, including the possibility of bleeding from the liver and/or injury to the common bile duct which may require . The patient consented for an open repair. The patient understands all the above. Her questions were answered. She decided to proceed. DESCRIPTION OF PROCEDURE: The procedure was done in the operating room. The patient was placed in a supine position. General anesthesia induced by endotracheal intubation. Abdomen prepped and draped in usual fashion. Incision was made just above the umbilicus. The skin was retracted with with towel clips. A 5 mm port with Optiview adapter and a scope was inserted through abdominal wall into the peritoneal cavity. CO2 insufflation was established. Under direct visualization, a 12 mm port and two 5 mm ports were placed in the epigastrium. The right upper quadrant of the abdomen was inspected. The patient was placed in reverse Trendelenburg position with the left side elevated. The gallbladder was found to be thickened and edematous. It could not be grasped initially. At this point, a laparoscopic needle connected to the 6 mm syringe was used to drain the gallbladder. About 6 mL of dark green bile was obtained and this was sent for anaerobic and aerobic culture and Gram stain. The gallbladder was then grasped at the level of the bed and retroflexed. The gallbladder neck was grasped anterior and pulled toward the patient's right. The large amount of attachments the omentum and the gallbladder were obtained. These were taken down bluntly and with the hook cautery. Once this was accomplished, the gallbladder was grasped again at the level of the neck and pulled anterior toward the patient's right. The of the was then obtained by dividing the attachments medially and laterally to the angle of bladder neck and and the dissection was then continued over the cystic duct. This was dissected with the hook cautery. However, during the dissection it appeared the cystic duct had avulsed. It appeared that the proximal stump out of the common bile duct was identified. This was double clipped proximally and dissection was then continued. The gallbladder was then dissected off the liver bed using a hook cautery and extracted from the peritoneal cavity through the umbilical port using an Endobag. The was reestablished. The liver bed was inspected. No bile was noted. The abdominal cavity was irrigated with a total of *- L of normal saline, which was fully aspirated. Under direct visualization, a [id number] 0 Vicryl suture was placed to close the epigastric fascial defect using a fascial closure device. The suture was left untied to the epigastric port. A 12 mm round Kj drain was inserted and accepted through the right upper quadrant epigastric port side. The drain was placed under the liver bed and the gallbladder fossa, secured to the skin with nylon suture. The patient was placed in a straight supine position. All ports and instruments were removed. The CO2 insufflation was released. All the fascial defect of the epigastrium closed with a Vicryl ydttir-ph-insuc suture. All skin incisions then closed with 4-0 Vicryl running subcuticular suture with Dermabond applied. The patient tolerated the procedure well, extubated, and transferred to the recovery room in satisfactory condition. DICTATING PHYSICIAN: ALTAGRACIA RIVERA M.D. [id number] PHY#: [id number] ID: [id number] JOB#: [id number] ACCT: [id number] cc:ALTAGRACIA RIVERA M.D. >
--- NOTE | 2018-07-13 13:45 | PDOC DISCHARGE SUMMARY ---
General - Admit/Disc Date/PCP Admission Date/Primary Care Provider: 07/11/18 16:42 Discharge Date: 07/13/18 - Discharge Diagnosis (1) Cholecystitis Is this a current diagnosis for this admission?: Yes - Additional Information Resuscitation Status: Full Code Discharge Diet: As Tolerated Discharge Activity: No Lifting Over 10 Pounds Home Medications: Ketorolac Tromethamine [Toradol 10 mg Tablet] 10 mg PO Q6HP PRN #20 tablet MDD FILLED 07/05 FOR 5 DAY SUPPLY 07/05/18 History of Present Illness History of Present Illness: MAYELIN PARRA is a 38 year old female admitted with cholecystitis, confirmed by ultrasound. The patient had right upper quadrant pain, nausea, vomiting. The patient was admitted, started on antibiotics, and taken to the operating room for definitive surgical treatment. Hospital Course Hospital Course: The patient was admitted to the hospital. She was taken to the operating room on 07/12/2018 for laparoscopic cholecystectomy. The patient was found to have acute cholecystitis. The patient did well from the operation. She was taken to the floor in stable condition. On postoperative day #1 HIDA scan was performed showing no evidence of bile leak. The patient was begun on a diet. The patient tolerated the diet well. By 07/13/2018 the patient was ambulating, tolerating a diet, her pain was controlled with oral pain medications, and it was felt that she had reached maximal hospital benefit. At this time the patient is medically fit for discharge. Physical Exam Vital Signs: Temp Pulse Resp BP Pulse Ox 98.5 F 82 16 112/66 97 07/13/18 11:16 07/13/18 11:16 07/13/18 11:16 07/13/18 11:16 07/13/18 11:16 Intake & Output 07/12/18 07/13/18 07/14/18 06:59 06:59 06:59 Intake Total 1790 2450 1400 Output Total 1160 0 Balance 1790 1290 1400 Weight 60.6 kg Results Laboratory Results: 07/13/18 06:47 07/13/18 06:47 07/13/18 07/13/18 06:47 06:47 WBC 8.8 RBC 3.65 L Hgb 11.2 L Hct 33.4 L MCV 92 MCH 30.7 MCHC 33.5 RDW 13.5 Plt Count 187 Sodium 141.8 Potassium 3.9 Chloride 110 H Carbon Dioxide 23 Anion Gap 9 BUN 4 L Creatinine 0.61 Est GFR ( Amer) > 60 Est GFR (Non-Af Amer) > 60 Glucose 91 Calcium 8.4 Total Bilirubin 0.4 AST 40 H ALT 49 Alkaline Phosphatase 46 Total Protein 5.1 L Albumin 2.6 L Impressions: Abdomen Ultrasound 07/11/18 13:23 IMPRESSION: Cholelithiasis with thickening of the gallbladder wall and pericholecystic fluid concerning for acute cholecystitis. Hepatobiliary Scan Nuclear Medicine 07/13/18 07:00 IMPRESSION: No ectopic accumulation of activity to suggest bile leak. Normal accumulation and clearance of activity from the liver. Normal activity in the intrahepatic ducts, common bile duct, and duodenum. Qualifiers - * PATIENT BEING DISCHARGED WITH ANY OF THE FOLLOWING DIAGNOSIS: No Plan Discharge Plan: Discharge home. Diet as tolerated. Activity: No lifting greater than 10 pounds x 2 weeks. Follow-up with [facility] [facility] in 7 days for drain removal. Okay to shower starting tomorrow. No swimming or tub baths times 2 weeks.
[2018-07-13 13:53] VITALS: BP 126/75
== END 2018-07-13 14:10 | disposition home or self-care (01) | DRG 419 ==
LOC: ER 11:25 → EH 16:42 → 2N 17:50
PROVIDERS: ADMIT Surgery; ATTEND Surgery
PROC: 0FT44ZZ Resection of Gallbladder, Percutaneous Endoscopic Approach (ICD-10-PCS; principal; 2018-07-12 13:00)
DX: K80.12 Calculus of gallbladder with acute and chronic cholecystitis without obstruction (principal); F17.200 Nicotine dependence, unspecified, uncomplicated; Z98.891 History of uterine scar from previous surgery; Z98.51 Tubal ligation status
CPT/HCPCS: 1961; 36415; 76705; 78226; 80053; 81001; 81025; 83690; 85025; 85027; 87040; 87070; 87075; 87205; 88304; 94799; 96361; 96374; 99285; A9537; J0131; J0330; J0694; J1100; J1170; J1885; J2250; J2270; J2405; J2543; J2704; J3010; J3490; J7030; Q9969; S0028